=== PATIENT | male | born 1940 | race Caucasian/White ===

== ENCOUNTER 2017-07-03 22:44 | Inpatient (IN) | payer MEDICARE ==
[~2017-07-03] VITALS: Ht 170.2 cm; Wt 77.3 kg
[~2017-07-03 22:44] MED LIST: AMLO2.5T PO; APIX5TAB3 PO; ASPI-611 PO; ATOR20TA PO; CLOP75TA35 PO; GEMF600T3 PO; HYDR25TA4 PO; INDO50CA PO; LISI40TA4 PO; OMEG-42 PO; OMEP20TA23 PO; POTA20TA10 PO; SOTA80TA PO; TRAZ-146 PO
[2017-07-03 23:11] LABS: BASOPHILS % (AUTO) 0.2 % (0-1); EOSINOPHILS # (AUTO) 0.1 X10'3 (0-0.9); HEMATOCRIT 38.8 % (42.0-52.0); HEMOGLOBIN 13.7 g/dl (14.0-17.9); LYMPHOCYTES # (AUTO) 1.2 X10'3 (1.1-4.8); LYMPHOCYTES % (AUTO) 26.5 % (21-51); MEAN CORPUSCULAR HEMOGLOBIN 31.3 PG (27.0-31.0); MEAN CORPUSCULAR HGB CONC 35.3 % (33.0-36.5); MEAN CORPUSCULAR VOLUME 88.7 FL (78-98); MEAN PLATELET VOLUME 7.5 FL (7.4-10.4); MONOCYTES # (AUTO) 0.5 X10'3 (0-0.9); MONOCYTES % (AUTO) 11.4 % (2-12); NEUTROPHILS # (AUTO) 2.7 X10'3 (1.8-7.7); NEUTROPHILS % (AUTO) 58.9 % (42-75); PLATELET COUNT 166 X10'3 (140-440); RED BLOOD COUNT 4.38 X10'6 (4.70-6.10); RED CELL DISTRIBUTION WIDTH 14.4 % (11.5-14.5); WHITE BLOOD COUNT 4.5 X10'3 (4.5-11.0)
[2017-07-03 23:21] LABS: INR 1.1 INR; PARTIAL THROMBOPLASTIN TIME 29 SECONDS (22-32); PROTHROMBIN TIME 11.6 SECONDS (9.0-12.0)
[2017-07-03] MEDS ORDERED: nitroGLYCERIN 0.4mg/hour patch TD ONE (23:25)
[2017-07-03 23:32] LABS: ALANINE AMINOTRANSFERASE 16 U/L (12-78); ALBUMIN/GLOBULIN RATIO 1.2 (1.1-1.5); ALKALINE PHOSPHATASE 89 IU/L (46-116); ANION GAP 8 (8-16); ASPARTATE AMINO TRANSFERASE 16 U/L (10-37); BILIRUBIN,TOTAL 0.7 MG/DL (0.1-1.0); BLOOD UREA NITROGEN 20 MG/DL (7-18); BUN/CREATININE RATIO 17.2 (5.4-32.0); CALCIUM 9.4 MG/DL (8.5-10.1); CHLORIDE 106 MMOL/L (99-107); CREATININE 1.16 MG/DL (0.60-1.10); GLUCOSE 118 MG/DL (70-104); POTASSIUM 3.4 MMOL/L (3.5-5.1); SODIUM 145 MMOL/L (135-145); TOTAL CARBON DIOXIDE 30.8 MMOL/L (24-32); TOTAL PROTEIN 7.4 G/DL (6.4-8.2); eGFR 61 ML/MIN
[2017-07-04] MEDS ORDERED: CARV-50 PO (01:41)
[2017-07-04] MEDS ORDERED: APIX5TAB3 PO (01:41)
[2017-07-04] MEDS ORDERED: LISI40TA4 PO (01:41)
[2017-07-04] MEDS ORDERED: CHOL100046 PO (01:42)
[2017-07-04] MEDS ORDERED: mag hydrox/Alum hydrox/simeth 30ml oral suspension PO PRN (01:45)
[2017-07-04] MEDS ORDERED: acetaminophen 325mg tablet PO PRN (01:45)
[2017-07-04] MEDS ORDERED: ondansetron/PF 4mg/2ml inj IV PRN (01:45)
[2017-07-04] MEDS ORDERED: magnesium hydroxide 30ml (MOM) UD suspension PO PRN (01:45)
[2017-07-04] MEDS ORDERED: potassium Cl 20 mEq SR tablet PO PRN (07:00)
[2017-07-04] MEDS ORDERED: magnesium Cl slow-release 64mg tablet PO PRN (07:00)
[2017-07-04] MEDS ORDERED: potassium Cl 40MEQ/NS 500ml 500 ML IV PRN ×2 (07:00)
[2017-07-04] MEDS ORDERED: gemfibrozil 600mg tablet PO SCH (07:30)
[2017-07-04] MEDS ORDERED: atorvastatin 20mg tablet PO SCH (08:00)
[2017-07-04] MEDS: lisinopril 20mg tablet PO SCH ×2 (08:11→21:00)
[2017-07-04] MEDS: vitamin D (cholecalciferol) 1,000 unit tablet PO SCH (08:11)
[2017-07-04] MEDS: carVEDilol 12.5mg tablet PO SCH ×2 (08:12→21:00)
[2017-07-04] MEDS: pantoprazole 40mg Tablet.DR PO SCH (08:12)
[2017-07-04] MEDS: amLODIPine 5mg tablet PO SCH (08:13)
[2017-07-04] MEDS: aspirin 81mg tab.chew PO SCH (08:13)
[2017-07-04] MEDS: potassium Cl 20 mEq SR tablet PO SCH ×3 (08:13→21:01)
[2017-07-04 09:22] VITALS: BP 126/56
[2017-07-04] MEDS ORDERED: metoprolol tartrate 1mg/ml inj IV PRN (09:55)
[2017-07-04] MEDS ORDERED: regadenoson 0.4mg/5ml syringe IV ONE (09:55)
[2017-07-04] MEDS ORDERED: nitroGLYCERIN 0.4mg SUBLingual tab SL PRN (09:55)
[2017-07-04] MEDS ORDERED: aminophylline 250mg/10ml inj. IV PRN (09:55)
[2017-07-04] MEDS: apixaban 5mg tablet PO SCH ×2 (10:05→21:00)
[2017-07-04 11:00] VITALS: BP 104/62
[2017-07-04] MEDS: potassium Cl 20 mEq SR tablet PO PRN (13:01)
[2017-07-04] MEDS: gemfibrozil 600mg tablet PO SCH (17:27)
[2017-07-04 19:00] VITALS: BP 122/62
[2017-07-04] MEDS: traZODone 50mg tablet PO SCH (21:01)
[2017-07-04] MEDS: atorvastatin 20mg tablet PO SCH (21:01)
[2017-07-04 23:00] VITALS: BP 131/72
[2017-07-05] VITALS (22 sets, daily range): BP systolic 92–165; BP diastolic 38–82
[2017-07-05 06:38] LABS: BASOPHILS % (AUTO) 0.1 % (0-1); EOSINOPHILS # (AUTO) 0.1 X10'3 (0-0.9); EOSINOPHILS % (AUTO) 2.5 % (0-6); HEMATOCRIT 35.8 % (42.0-52.0); HEMOGLOBIN 12.5 g/dl (14.0-17.9); LYMPHOCYTES # (AUTO) 1.2 X10'3 (1.1-4.8); MEAN CORPUSCULAR HEMOGLOBIN 31.2 PG (27.0-31.0); MEAN CORPUSCULAR VOLUME 89.1 FL (78-98); MEAN PLATELET VOLUME 7.9 FL (7.4-10.4); MONOCYTES # (AUTO) 0.5 X10'3 (0-0.9); MONOCYTES % (AUTO) 10.9 % (2-12); NEUTROPHILS % (AUTO) 61.5 % (42-75); PLATELET COUNT 154 X10'3 (140-440); RED BLOOD COUNT 4.02 X10'6 (4.70-6.10); RED CELL DISTRIBUTION WIDTH 14.2 % (11.5-14.5); WHITE BLOOD COUNT 4.8 X10'3 (4.5-11.0)
[2017-07-05 07:01] LABS: ALANINE AMINOTRANSFERASE 21 U/L (12-78); ALBUMIN 3.3 G/DL (3.4-5.0); ALBUMIN/GLOBULIN RATIO 1.1 (1.1-1.5); ALKALINE PHOSPHATASE 76 IU/L (46-116); ANION GAP 9 (8-16); ASPARTATE AMINO TRANSFERASE 13 U/L (10-37); BILIRUBIN,TOTAL 0.5 MG/DL (0.1-1.0); BLOOD UREA NITROGEN 23 MG/DL (7-18); BUN/CREATININE RATIO 21.5 (5.4-32.0); CHLORIDE 109 MMOL/L (99-107); CREATININE 1.07 MG/DL (0.60-1.10); GLUCOSE 115 MG/DL (70-104); MAGNESIUM 2.2 MG/DL (1.5-2.4); POTASSIUM 3.4 MMOL/L (3.5-5.1); SODIUM 146 MMOL/L (135-145); TOTAL PROTEIN 6.4 G/DL (6.4-8.2); eGFR 67 ML/MIN
[2017-07-05] MEDS: vitamin D (cholecalciferol) 1,000 unit tablet PO SCH (07:35)
[2017-07-05] MEDS: potassium Cl 20 mEq SR tablet PO SCH ×3 (07:35→20:15)
[2017-07-05] MEDS: aspirin 81mg tab.chew PO SCH (07:35)
[2017-07-05] MEDS: pantoprazole 40mg Tablet.DR PO SCH (07:35)
[2017-07-05] MEDS: potassium Cl 20 mEq SR tablet PO PRN ×2 (07:35→12:56)
[2017-07-05] MEDS: carVEDilol 12.5mg tablet PO SCH ×2 (07:36→20:16)
[2017-07-05] MEDS: gemfibrozil 600mg tablet PO SCH ×2 (07:37→20:15)
[2017-07-05] MEDS: amLODIPine 5mg tablet PO SCH (07:37)
[2017-07-05] MEDS: HYDROchlorothiazide 12.5mg capsule PO SCH (07:37)
[2017-07-05] MEDS: lisinopril 20mg tablet PO SCH ×2 (07:37→20:14)
[2017-07-05] MEDS: apixaban 5mg tablet PO SCH (07:37)
[2017-07-05] MEDS ORDERED: regadenoson 0.4mg/5ml syringe IV ONE (09:00)
[2017-07-05] MEDS ORDERED: aminophylline inj. 0 ML IV ONE (09:00)
[2017-07-05] MEDS ORDERED: normal saline 1000ml 1,000 ML IV SCH ×2 (13:20→16:30)
[2017-07-05] MEDS ORDERED: nitroGLYCERIN-Tridil 50MG/D5W 250 ML IV ONE (14:44)
[2017-07-05] MEDS ORDERED: fentaNYL/PF 50MCG/1 ML 2ML syringe ONE (14:44)
[2017-07-05] MEDS ORDERED: LIDOcaine 1% 30ml vial 30 ML ONE (14:45)
[2017-07-05] MEDS ORDERED: iohexol 350 MG/ML 50ML vial IV ONE (14:45)
[2017-07-05] MEDS ORDERED: midazolam 2 mg/2 ml injection ONE (14:45)
[2017-07-05] MEDS ORDERED: iohexol 350MG/ML 100ml bottle IV ONE (14:45)
[2017-07-05] MEDS ORDERED: heparin 1,000unit/ml 10ml vial 10 ML ONE (14:45)
[2017-07-05] MEDS ORDERED: ISOS30TA6 PO (16:58)
[2017-07-05] MEDS: atorvastatin 20mg tablet PO SCH (20:14)
[2017-07-05] MEDS: traZODone 50mg tablet PO SCH (20:14)
[2017-07-06 03:00] VITALS: BP 105/70
[2017-07-06 06:00] VITALS: BP 128/74
[2017-07-06 06:17] LABS: BASOPHILS % (AUTO) 0.1 % (0-1); EOSINOPHILS # (AUTO) 0.2 X10'3 (0-0.9); EOSINOPHILS % (AUTO) 2.3 % (0-6); HEMATOCRIT 35.6 % (42.0-52.0); HEMOGLOBIN 12.3 g/dl (14.0-17.9); LYMPHOCYTES # (AUTO) 1.1 X10'3 (1.1-4.8); LYMPHOCYTES % (AUTO) 16.5 % (21-51); MEAN CORPUSCULAR HEMOGLOBIN 30.9 PG (27.0-31.0); MEAN CORPUSCULAR HGB CONC 34.6 % (33.0-36.5); MEAN CORPUSCULAR VOLUME 89.3 FL (78-98); MONOCYTES # (AUTO) 0.6 X10'3 (0-0.9); MONOCYTES % (AUTO) 8.7 % (2-12); NEUTROPHILS # (AUTO) 4.8 X10'3 (1.8-7.7); NEUTROPHILS % (AUTO) 72.4 % (42-75); PLATELET COUNT 153 X10'3 (140-440); RED BLOOD COUNT 3.99 X10'6 (4.70-6.10); RED CELL DISTRIBUTION WIDTH 15.2 % (11.5-14.5); WHITE BLOOD COUNT 6.6 X10'3 (4.5-11.0)
[2017-07-06 06:37] LABS: ALANINE AMINOTRANSFERASE 14 U/L (12-78); ALBUMIN 3.2 G/DL (3.4-5.0); ALKALINE PHOSPHATASE 76 IU/L (46-116); ANION GAP 8 (8-16); ASPARTATE AMINO TRANSFERASE 11 U/L (10-37); BILIRUBIN,TOTAL 0.5 MG/DL (0.1-1.0); BLOOD UREA NITROGEN 17 MG/DL (7-18); BUN/CREATININE RATIO 16.2 (5.4-32.0); CHLORIDE 111 MMOL/L (99-107); CHOLESTEROL 83 MG/DL (0-200); CREATININE 1.05 MG/DL (0.60-1.10); GLUCOSE 106 MG/DL (70-104); HDL CHOLESTEROL 28 MG/DL (35-60); LDL CHOLESTEROL 46 MG/DL (50-100); MAGNESIUM 1.9 MG/DL (1.5-2.4); POTASSIUM 3.6 MMOL/L (3.5-5.1); SODIUM 146 MMOL/L (135-145); TOTAL CARBON DIOXIDE 27.5 MMOL/L (24-32); TOTAL PROTEIN 6.5 G/DL (6.4-8.2); TRIGLYCERIDES 44 MG/DL (20-135); eGFR 68 ML/MIN
[2017-07-06] MEDS: vitamin D (cholecalciferol) 1,000 unit tablet PO SCH (08:19)
[2017-07-06] MEDS: gemfibrozil 600mg tablet PO SCH (08:19)
[2017-07-06] MEDS: aspirin 81mg tab.chew PO SCH (08:20)
[2017-07-06] MEDS: potassium Cl 20 mEq SR tablet PO SCH ×2 (08:20→13:00)
[2017-07-06] MEDS: carVEDilol 12.5mg tablet PO SCH (08:20)
[2017-07-06] MEDS: amLODIPine 5mg tablet PO SCH (08:20)
[2017-07-06] MEDS: lisinopril 20mg tablet PO SCH (08:20)
[2017-07-06] MEDS: pantoprazole 40mg Tablet.DR PO SCH (08:20)
[2017-07-06] MEDS: HYDROchlorothiazide 12.5mg capsule PO SCH (08:20)
[2017-07-06 11:00] VITALS: BP 125/69
== END 2017-07-06 13:00 | disposition home or self-care (01) | DRG 287 ==
LOC: ER 22:45 → ED HOLD 07-04 01:42 → EDBEDREQ 07-04 06:27 → PCU 3S 07-04 09:28
PROVIDERS: ADMIT Internal Medicine; ATTEND Internal Medicine
PROC: 4A023N8 Measurement of Cardiac Sampling and Pressure, Bilateral, Percutaneous Approach (ICD-10-PCS; principal; 2017-07-05)
PROC: B2111ZZ Fluoroscopy of Multiple Coronary Arteries using Low Osmolar Contrast (ICD-10-PCS; 2017-07-05)
PROC: 3E073KZ Introduction of Other Diagnostic Substance into Coronary Artery, Percutaneous Approach (ICD-10-PCS; 2017-07-05)
PROC: 4A02XM4 Measurement of Cardiac Total Activity, External Approach (ICD-10-PCS; 2017-07-05)
PROC: B2151ZZ Fluoroscopy of Left Heart using Low Osmolar Contrast (ICD-10-PCS; 2017-07-05)
DX: I25.110 Atherosclerotic heart disease of native coronary artery with unstable angina pectoris (principal); I48.0 Paroxysmal atrial fibrillation; E78.5 Hyperlipidemia, unspecified; M10.9 Gout, unspecified; I10 Essential (primary) hypertension; E87.6 Hypokalemia; M19.90 Unspecified osteoarthritis, unspecified site; G47.33 Obstructive sleep apnea (adult) (pediatric); E66.9 Obesity, unspecified; I25.2 Old myocardial infarction; Z79.01 Long term (current) use of anticoagulants; Z79.82 Long term (current) use of aspirin; Z79.899 Other long term (current) drug therapy; Z95.0 Presence of cardiac pacemaker; Z95.5 Presence of coronary angioplasty implant and graft; Z87.442 Personal history of urinary calculi; Z82.49 Family history of ischemic heart disease and other diseases of the circulatory system; Z80.42 Family history of malignant neoplasm of prostate; Z80.0 Family history of malignant neoplasm of digestive organs; Z80.8 Family history of malignant neoplasm of other organs or systems; Z68.26 Body mass index [BMI] 26.0-26.9, adult
CPT/HCPCS: 36415; 71045; 78451; 80053; 80061; 80162; 83735; 83880; 84484; 85025; 85610; 85730; 87070; 93005; 93017; 93460; 99152; 99153; 99285; A4620; A6257; A6258; A9500; C1760; C1769; C1894; J0280; J1644; J2250; J3010; J3490; J7030; Q9967

== ENCOUNTER 2020-01-13 20:55 | Observation (INO) | payer MEDICARE ==
[~2020-01-13] VITALS: Ht 170.2 cm; Wt 70.0 kg
[~2020-01-13 20:55] MED LIST changes: -AMLO2.5T PO; +AMLO2.5T4 PO; +CARV-50 PO; +CHOL100046 PO; -CLOP75TA35 PO; -GEMF600T3 PO; +GEMF600T89 PO; -INDO50CA PO; -SOTA80TA PO; -TRAZ-146 PO; +TRAZ-256 PO
[2020-01-13] MEDS ORDERED: aspirin 81mg tab.chew PO ONE ×2 (21:05→22:20)
[2020-01-13] MEDS: nitroGLYCERIN 0.4mg SUBLingual tab SL PRN ×2 (21:26→21:49)
--- NOTE | 2020-01-13 21:38 | NUR ---
Pt given SL Nitro x 1. Chest pressure/tightness improved from 5/10 to 3/10.
[2020-01-13 21:41] LABS: BASOPHILS % (AUTO) 0.5 % (0-1); EOSINOPHILS # (AUTO) 0.1 X10'3 (0-0.9); EOSINOPHILS % (AUTO) 2.8 % (0-6); HEMATOCRIT 36.9 % (42.0-52.0); HEMOGLOBIN 12.5 g/dl (14.0-17.9); LYMPHOCYTES # (AUTO) 0.7 X10'3 (1.1-4.8); LYMPHOCYTES % (AUTO) 14.1 % (21-51); MEAN CORPUSCULAR HEMOGLOBIN 30.8 PG (27.0-31.0); MEAN CORPUSCULAR HGB CONC 33.8 g/dL (33.0-36.5); MEAN CORPUSCULAR VOLUME 91.1 FL (78-98); MEAN PLATELET VOLUME 7.4 FL (7.4-10.4); MONOCYTES # (AUTO) 0.6 X10'3 (0-0.9); MONOCYTES % (AUTO) 13.6 % (2-12); NEUTROPHILS # (AUTO) 3.2 X10'3 (1.8-7.7); PLATELET COUNT 138 X10'3 (140-440); RED BLOOD COUNT 4.05 X10'6 (4.70-6.10); RED CELL DISTRIBUTION WIDTH 13.9 % (11.5-14.5); WHITE BLOOD COUNT 4.7 X10'3 (4.5-11.0)
--- NOTE | 2020-01-13 21:50 | NUR ---
Pt given 2nd dose SL Nitro for c/o continued chest pressure/tightness, especially on inspiration.
[2020-01-13] MEDS ORDERED: ondansetron/PF 4mg/2ml inj IV ONE (22:00)
[2020-01-13 22:01] LABS: ALANINE AMINOTRANSFERASE 17 U/L (12-78); ALBUMIN 3.8 G/DL (3.4-5.0); ALBUMIN/GLOBULIN RATIO 1.3 (1.1-1.5); ALKALINE PHOSPHATASE 58 IU/L (46-116); ANION GAP 7 (8-16); ASPARTATE AMINO TRANSFERASE 17 U/L (10-37); BILIRUBIN,TOTAL 0.7 MG/DL (0.1-1.0); BLOOD UREA NITROGEN 20 MG/DL (7-18); BUN/CREATININE RATIO 21.5 (5.4-32.0); CALCIUM 8.7 MG/DL (8.5-10.1); CHLORIDE 104 MMOL/L (99-107); CREATININE 0.93 MG/DL (0.60-1.10); GLUCOSE 127 MG/DL (70-104); POTASSIUM 3.5 MMOL/L (3.5-5.1); SODIUM 140 MMOL/L (135-145); TOTAL CARBON DIOXIDE 28.7 MMOL/L (24-32); TOTAL PROTEIN 6.8 G/DL (6.4-8.2); eGFR 78 ML/MIN
[2020-01-13] MEDS ORDERED: ondansetron/PF 4mg/2ml inj IV PRN (22:20)
[2020-01-13] MEDS ORDERED: magnesium 4gm in 100ml NS 100 ML IV PRN (22:20)
[2020-01-13] MEDS ORDERED: magnesium 2GM in 50ml NS 50 ML IV PRN (22:20)
[2020-01-13] MEDS ORDERED: aminophylline 250mg/10ml inj. IV PRN (22:20)
[2020-01-13] MEDS ORDERED: metoprolol tartrate 1mg/ml inj IV PRN (22:20)
[2020-01-13] MEDS ORDERED: potassium CL 10mEq/100ml bag 100 ML IV PRN ×2 (22:20)
[2020-01-13] MEDS ORDERED: magnesium Cl slow-release 64mg tablet PO PRN (22:20)
[2020-01-13] MEDS ORDERED: regadenoson 0.4mg/5ml syringe IV ONE (22:20)
[2020-01-13] MEDS ORDERED: potassium Cl 20 mEq SR tablet PO PRN ×2 (22:20)
[2020-01-13] MEDS ORDERED: mag hydrox/Alum hydrox/simeth 30ml oral suspension PO PRN (22:20)
[2020-01-13] MEDS ORDERED: magnesium hydroxide 30ml (MOM) UD suspension PO PRN (22:20)
[2020-01-13] MEDS ORDERED: morphine 2 MG/ML inj. syringe IV PRN (22:20)
[2020-01-13] MEDS ORDERED: nitroGLYCERIN 0.4mg SUBLingual tab SL PRN ×2 (22:20)
[2020-01-13] MEDS ORDERED: acetaminophen 325mg tablet PO PRN (22:20)
[2020-01-13] MEDS ORDERED: ATOR40TA71 PO (22:23)
[2020-01-13] MEDS ORDERED: regadenoson 0.4mg/5ml syringe IV PRN (22:30)
--- NOTE | 2020-01-13 23:08 | NUR ---
called report rn will call back
--- NOTE | 2020-01-13 23:17 | NUR ---
Patient in room ED 13. I have received report from ROSELIA Damon and had the opportunity to ask questions and assume patient care.
[2020-01-13 23:27] VITALS: BP 139/77
--- NOTE | 2020-01-13 23:38 | NUR ---
Patient arrived on unit via wheelchair with RN. Vital signs taken, mrsa swab complete, 2 rn skin check performed, DART complete. Will continue to monitor. He is in stable condition without CP.
[2020-01-14] VITALS (10 sets, daily range): BP systolic 105–148; BP diastolic 47–80
[2020-01-14 03:10] LABS: BASOPHILS % (AUTO) 0.3 % (0-1); EOSINOPHILS # (AUTO) 0.1 X10'3 (0-0.9); HEMATOCRIT 39.9 % (42.0-52.0); HEMOGLOBIN 13.5 g/dl (14.0-17.9); LYMPHOCYTES # (AUTO) 0.8 X10'3 (1.1-4.8); LYMPHOCYTES % (AUTO) 15.6 % (21-51); MEAN CORPUSCULAR HGB CONC 33.9 g/dL (33.0-36.5); MEAN CORPUSCULAR VOLUME 91.3 FL (78-98); MEAN PLATELET VOLUME 7.5 FL (7.4-10.4); MONOCYTES # (AUTO) 0.5 X10'3 (0-0.9); NEUTROPHILS # (AUTO) 3.5 X10'3 (1.8-7.7); NEUTROPHILS % (AUTO) 71.1 % (42-75); PLATELET COUNT 142 X10'3 (140-440); RED BLOOD COUNT 4.37 X10'6 (4.70-6.10)
[2020-01-14 03:24] LABS: ALANINE AMINOTRANSFERASE 19 U/L (12-78); ALBUMIN 3.9 G/DL (3.4-5.0); ALBUMIN/GLOBULIN RATIO 1.2 (1.1-1.5); ALKALINE PHOSPHATASE 64 IU/L (46-116); ANION GAP 5 (8-16); ASPARTATE AMINO TRANSFERASE 18 U/L (10-37); BILIRUBIN,TOTAL 0.6 MG/DL (0.1-1.0); BLOOD UREA NITROGEN 19 MG/DL (7-18); BUN/CREATININE RATIO 22.4 (5.4-32.0); CALCIUM 9.2 MG/DL (8.5-10.1); CHLORIDE 108 MMOL/L (99-107); CREATININE 0.85 MG/DL (0.60-1.10); GLUCOSE 119 MG/DL (70-104); POTASSIUM 3.7 MMOL/L (3.5-5.1); SODIUM 142 MMOL/L (135-145); TOTAL CARBON DIOXIDE 29.1 MMOL/L (24-32); TOTAL PROTEIN 7.2 G/DL (6.4-8.2); eGFR 87 ML/MIN
[2020-01-14 03:27] LABS: MAGNESIUM 2.2 MG/DL (1.5-2.4)
--- NOTE | 2020-01-14 06:04 | NUR ---
Patient in room PCU 3023. I have received report from ROSELIA Mccall and had the opportunity to ask questions and assume patient care.
--- NOTE | 2020-01-14 06:09 | NUR ---
Problems reprioritized. Patient report given, questions answered & plan of care reviewed with ROSELIA Espinosa.
[2020-01-14] MEDS ORDERED: apixaban 5mg tablet PO SCH (08:00)
[2020-01-14] MEDS ORDERED: aspirin 81mg tablet.DR PO SCH (08:00)
[2020-01-14] MEDS ORDERED: amLODIPine 5mg tablet PO SCH (08:00)
[2020-01-14] MEDS ORDERED: HYDROchlorothiazide 12.5mg capsule PO SCH (08:00)
[2020-01-14] MEDS ORDERED: carVEDilol 12.5mg tablet PO SCH (08:00)
[2020-01-14] MEDS ORDERED: K and/or MAG REPLACEMENT MC SCH (08:00)
[2020-01-14] MEDS ORDERED: lisinopril 5mg tablet PO SCH (08:00)
[2020-01-14] MEDS ORDERED: aspirin 81mg tab.chew PO SCH (08:00)
--- NOTE | 2020-01-14 15:59 | NUR ---
Pt stable for discharge per MD orders. Provided discharge education and instructions. Answered any questions/concerns pt may have. No new medications needed to be sent to pharmacy. Tele monitor removed. PIV removed, cannula intact. Belongings sent with pt. Pt walked down to lobby where pt was picked up in private vehicle by .
== END 2020-01-14 15:54 | disposition home or self-care (01) ==
LOC: ER 20:56 → ED HOLD 22:18 → PCU 3S 23:20
PROVIDERS: ADMIT Family Medicine; ATTEND Family Medicine
DX: R07.89 Other chest pain (principal); I48.20 Chronic atrial fibrillation, unspecified; I25.10 Atherosclerotic heart disease of native coronary artery without angina pectoris; I10 Essential (primary) hypertension; E78.5 Hyperlipidemia, unspecified; I25.2 Old myocardial infarction; M10.9 Gout, unspecified; I24.9 Acute ischemic heart disease, unspecified; Z95.5 Presence of coronary angioplasty implant and graft; Z95.0 Presence of cardiac pacemaker; Z79.01 Long term (current) use of anticoagulants; Z79.82 Long term (current) use of aspirin; Z79.899 Other long term (current) drug therapy
CPT/HCPCS: 36415; 71045; 78452; 80053; 83735; 83880; 84484; 85025; 87081; 93005; 93017; 93306; 96374; 99285; A9500; G0378; J2405; J2785

== ENCOUNTER 2020-02-23 06:20 | Day surgery (SDC) | payer MEDICARE ==
[2020-02-22 11:18] LABS: BASOPHILS % (AUTO) 0.3 % (0-1); EOSINOPHILS # (AUTO) 0.1 X10'3 (0-0.9); EOSINOPHILS % (AUTO) 1.4 % (0-6); HEMATOCRIT 42.4 % (42.0-52.0); HEMOGLOBIN 14.3 g/dl (14.0-17.9); LYMPHOCYTES # (AUTO) 0.9 X10'3 (1.1-4.8); LYMPHOCYTES % (AUTO) 20.6 % (21-51); MEAN CORPUSCULAR HEMOGLOBIN 30.9 PG (27.0-31.0); MEAN CORPUSCULAR HGB CONC 33.6 g/dL (33.0-36.5); MEAN CORPUSCULAR VOLUME 91.9 FL (78-98); MEAN PLATELET VOLUME 7.3 FL (7.4-10.4); MONOCYTES # (AUTO) 0.5 X10'3 (0-0.9); MONOCYTES % (AUTO) 11.7 % (2-12); NEUTROPHILS # (AUTO) 2.8 X10'3 (1.8-7.7); PLATELET COUNT 158 X10'3 (140-440); RED BLOOD COUNT 4.62 X10'6 (4.70-6.10); RED CELL DISTRIBUTION WIDTH 13.8 % (11.5-14.5); WHITE BLOOD COUNT 4.2 X10'3 (4.5-11.0)
[2020-02-22 11:28] LABS: ALBUMIN 4.1 G/DL (3.4-5.0); ANION GAP 3 (8-16); BLOOD UREA NITROGEN 17 MG/DL (7-18); BUN/CREATININE RATIO 16.7 (5.4-32.0); CALCIUM 9.3 MG/DL (8.5-10.1); CHLORIDE 108 MMOL/L (99-107); CREATININE 1.02 MG/DL (0.60-1.10); GLUCOSE 98 MG/DL (70-104); POTASSIUM 3.9 MMOL/L (3.5-5.1); SODIUM 143 MMOL/L (135-145); TOTAL CARBON DIOXIDE 31.7 MMOL/L (24-32); eGFR 70 ML/MIN
[2020-02-22 11:29] LABS: PARTIAL THROMBOPLASTIN TIME 29 SECONDS (22-32)
[2020-02-23] VITALS (10 sets, daily range): BP systolic 124–146; BP diastolic 68–85
[~2020-02-23] VITALS: Ht 170.2 cm; Wt 79.2 kg
[~2020-02-23 06:20] MED LIST changes: -ATOR20TA PO; +ATOR40TA71 PO; -OMEP20TA23 PO
[2020-02-23] MEDS ORDERED: normal saline 1,000 ML IV SCH (06:50)
[2020-02-23] MEDS ORDERED: LORazepam 0.5 MG tablet PO PRN (06:50)
[2020-02-23] MEDS ORDERED: diphenhydrAMINE 25mg capsule PO PRN (06:50)
[2020-02-23] MEDS ORDERED: LIDOcaine/PRILOcaine 5gm cream TP ONE (06:55)
[2020-02-23] MEDS ORDERED: nitroGLYCERIN-Tridil 50MG/D5W 250 ML IV ONE (07:40)
[2020-02-23] MEDS ORDERED: verapamil 2.5 mg/ml inj IV ONE (07:41)
[2020-02-23] MEDS ORDERED: heparin 1,000unit/ml 10ml vial 10 ML ONE (07:41)
[2020-02-23] MEDS ORDERED: iohexol 350MG/ML 100ml bottle IV ONE (07:41)
[2020-02-23] MEDS ORDERED: LIDOcaine 1% (10mg/ml)w/preservative injection 20ml MDV ONE (07:41)
[2020-02-23] MEDS ORDERED: fentaNYL/PF 50MCG/1 ML 2ML syringe ONE (07:41)
[2020-02-23] MEDS ORDERED: iohexol 350 MG/ML 50ML vial IV ONE (07:41)
[2020-02-23] MEDS ORDERED: midazolam 2 mg/2 ml injection ONE (07:41)
[2020-02-23] MEDS ORDERED: normal saline 1000ml 1,000 ML IV SCH (12:50)
--- NOTE | 2020-02-23 13:02 | NUR ---
Pt had IV fluids infusing as per written order upon admit, then new IV fluid order entered and administration was continued at increased rate. Pt has tolerated this well, vs stable as charted. Pt denies cp, sob. IV site stable.
== END 2020-02-23 14:00 | disposition home or self-care (01) ==
LOC: SSTAY O 06:20
PROVIDERS: ATTEND Internal Medicine Cardiovascular Disease
DX: R94.39 Abnormal result of other cardiovascular function study (principal); R53.83 Other fatigue; I25.10 Atherosclerotic heart disease of native coronary artery without angina pectoris; I10 Essential (primary) hypertension; E78.5 Hyperlipidemia, unspecified; I49.5 Sick sinus syndrome; I48.0 Paroxysmal atrial fibrillation; G47.33 Obstructive sleep apnea (adult) (pediatric); E66.9 Obesity, unspecified; Z68.27 Body mass index [BMI] 27.0-27.9, adult; Z95.5 Presence of coronary angioplasty implant and graft; Z95.0 Presence of cardiac pacemaker; Z79.899 Other long term (current) drug therapy; Z79.82 Long term (current) use of aspirin; Z79.01 Long term (current) use of anticoagulants; Z85.828 Personal history of other malignant neoplasm of skin; Z87.442 Personal history of urinary calculi; Z80.0 Family history of malignant neoplasm of digestive organs; Z80.8 Family history of malignant neoplasm of other organs or systems; Z81.8 Family history of other mental and behavioral disorders
CPT/HCPCS: 36415; 80048; 85025; 85610; 85730; 93005; 93458; 99152; 99153; C1769; C1894; J1644; J2001; J2250; J3010; J7030; Q0163; Q9967; A4620; A5120; A6258; J3490

== ENCOUNTER 2021-02-09 05:47 | Day surgery (SDC) | payer MEDICARE ==
[2021-02-08 12:20] LABS: BASOPHILS % (AUTO) 0.4 % (0-1); EOSINOPHILS # (AUTO) 0.1 X10'3 (0-0.9); EOSINOPHILS % (AUTO) 1.3 % (0-6); HEMATOCRIT 41.4 % (42.0-52.0); HEMOGLOBIN 13.8 g/dl (14.0-17.9); LYMPHOCYTES # (AUTO) 0.7 X10'3 (1.1-4.8); LYMPHOCYTES % (AUTO) 14.7 % (21-51); MEAN CORPUSCULAR HEMOGLOBIN 29.9 PG (27.0-31.0); MEAN CORPUSCULAR HGB CONC 33.4 g/dL (33.0-36.5); MEAN CORPUSCULAR VOLUME 89.4 FL (78-98); MEAN PLATELET VOLUME 8.2 FL (7.4-10.4); MONOCYTES # (AUTO) 0.6 X10'3 (0-0.9); MONOCYTES % (AUTO) 12.3 % (2-12); NEUTROPHILS # (AUTO) 3.3 X10'3 (1.8-7.7); NEUTROPHILS % (AUTO) 71.3 % (42-75); PLATELET COUNT 157 X10'3 (140-440); RED BLOOD COUNT 4.63 X10'6 (4.70-6.10); RED CELL DISTRIBUTION WIDTH 16.7 % (11.5-14.5); WHITE BLOOD COUNT 4.7 X10'3 (4.5-11.0)
[2021-02-08 12:26] LABS: PARTIAL THROMBOPLASTIN TIME 31 SECONDS (22-32)
[2021-02-08 12:32] LABS: ALBUMIN 3.8 G/DL (3.4-5.0); ANION GAP 7 (8-16); BLOOD UREA NITROGEN 21 MG/DL (7-18); BUN/CREATININE RATIO 15.4 (5.4-32.0); CALCIUM 9.4 MG/DL (8.5-10.1); CHLORIDE 111 MMOL/L (99-107); CREATININE 1.36 MG/DL (0.60-1.10); GLUCOSE 94 MG/DL (70-104); POTASSIUM 4.1 MMOL/L (3.5-5.1); SODIUM 148 MMOL/L (135-145); TOTAL CARBON DIOXIDE 29.6 MMOL/L (24-32); eGFR 50 ML/MIN
[~2021-02-09] VITALS: Ht 170.2 cm; Wt 81.6 kg
[2021-02-09] VITALS (9 sets, daily range): BP systolic 104–130; BP diastolic 51–72
[~2021-02-09 05:47] MED LIST changes: +LISI40TA13 PO; -LISI40TA4 PO; +POTA-197 PO; -POTA20TA10 PO
[2021-02-09] MEDS ORDERED: normal saline 1000ml 1,000 ML IV SCH (06:15)
[2021-02-09] MEDS ORDERED: cefazolin/dext.iso 2gm/100ml 100 ML IV ONE (06:15)
[2021-02-09] MEDS ORDERED: HYDR12.55 PO (06:57)
[2021-02-09] MEDS ORDERED: AMLO10TA PO (06:57)
[2021-02-09] MEDS ORDERED: ATOR20TA66 PO (06:57)
[2021-02-09] MEDS ORDERED: LIDOCAINE 1%/EPI 1:100,000 inj. 10 ML multi-dose vial ONE (07:42)
[2021-02-09] MEDS ORDERED: fentaNYL/PF 50MCG/1 ML 2ML syringe ONE (07:42)
[2021-02-09] MEDS ORDERED: midazolam 1 mg/ML 2ml injection ONE (07:42)
[2021-02-09] MEDS ORDERED: ceFAZolin 1000mg inj ONE (07:42)
[2021-02-09] MEDS ORDERED: HYDROcodone/acetaminophen 10/325mg tab PO PRN (09:50)
[2021-02-09] MEDS ORDERED: HYDROcodone/acetaminophen 5mg/325mg tablet PO PRN (09:50)
[2021-02-09] MEDS ORDERED: vancomycin/NS 1 GM ADD-VANTAGE 250 ML IV ONE (10:00)
== END 2021-02-09 12:00 | disposition home or self-care (01) ==
LOC: SSTAY O 05:47
PROVIDERS: ATTEND Internal Medicine Cardiovascular Disease
DX: Z45.010 Encounter for checking and testing of cardiac pacemaker pulse generator [battery] (principal); I25.10 Atherosclerotic heart disease of native coronary artery without angina pectoris; I48.91 Unspecified atrial fibrillation; I10 Essential (primary) hypertension; E78.5 Hyperlipidemia, unspecified; Z95.5 Presence of coronary angioplasty implant and graft; Z79.82 Long term (current) use of aspirin; Z79.899 Other long term (current) drug therapy; Z79.01 Long term (current) use of anticoagulants
CPT/HCPCS: 33228; 36415; 80048; 85025; 85610; 85730; 93005; 99152; 99153; C1785; J0690; J2250; J3010; J3370; J7030; A4620; A6449

== ENCOUNTER 2021-02-10 13:55 | Emergency (ER) | payer MEDICARE ==
[~2021-02-10] VITALS: Ht 167.6 cm; Wt 81.8 kg
[~2021-02-10 13:55] MED LIST changes: +AMLO10TA PO; -AMLO2.5T4 PO; +ATOR20TA66 PO; -ATOR40TA71 PO; +HYDR12.55 PO; -HYDR25TA4 PO
[2021-02-10 14:04] VITALS: BP 130/63
== END 2021-02-10 14:43 | disposition home or self-care (01) ==
LOC: ER 13:56
DX: Z48.1 Encounter for planned postprocedural wound closure (principal); R53.83 Other fatigue; R06.00 Dyspnea, unspecified; I48.91 Unspecified atrial fibrillation; I25.10 Atherosclerotic heart disease of native coronary artery without angina pectoris; I25.2 Old myocardial infarction; M10.9 Gout, unspecified; Z95.0 Presence of cardiac pacemaker; Z79.82 Long term (current) use of aspirin; Z79.899 Other long term (current) drug therapy
CPT/HCPCS: 99281

== ENCOUNTER 2021-04-17 12:12 | Emergency (ER) | payer MEDICARE ==
[~2021-04-17] VITALS: Ht 170.2 cm; Wt 82.7 kg
[2021-04-17 12:52] VITALS: BP 139/73
[2021-04-17] MEDS ORDERED: IOHEXOL 12MG/ML oral solution 500 ML BOTTLE PO ONE (15:40)
[2021-04-17] MEDS: diatr meglu/diatrizoate 30ml oral sol.-(3 dose) bottle PO SCH ×3 (15:45→15:53)
[2021-04-17 19:32] LABS: BASOPHILS % (AUTO) 0.2 % (0-1); EOSINOPHILS % (AUTO) 0.3 % (0-6); HEMATOCRIT 39.7 % (42.0-52.0); HEMOGLOBIN 13.3 g/dl (14.0-17.9); LYMPHOCYTES # (AUTO) 0.8 X10'3 (1.1-4.8); LYMPHOCYTES % (AUTO) 6.7 % (21-51); MEAN CORPUSCULAR HEMOGLOBIN 30.2 PG (27.0-31.0); MEAN CORPUSCULAR HGB CONC 33.6 g/dL (33.0-36.5); MEAN PLATELET VOLUME 7.9 FL (7.4-10.4); MONOCYTES # (AUTO) 1.5 X10'3 (0-0.9); MONOCYTES % (AUTO) 12.7 % (2-12); NEUTROPHILS # (AUTO) 9.3 X10'3 (1.8-7.7); NEUTROPHILS % (AUTO) 80.1 % (42-75); PLATELET COUNT 163 X10'3 (140-440); RED BLOOD COUNT 4.41 X10'6 (4.70-6.10); RED CELL DISTRIBUTION WIDTH 15.7 % (11.5-14.5); WHITE BLOOD COUNT 11.6 X10'3 (4.5-11.0)
[2021-04-17 19:41] LABS: D-DIMER 0.28 MG/L FEU (0-0.50)
[2021-04-17 19:48] LABS: ALANINE AMINOTRANSFERASE 23 U/L (12-78); ALBUMIN/GLOBULIN RATIO 1.1 (1.1-1.5); ALKALINE PHOSPHATASE 75 IU/L (46-116); ANION GAP 9 (8-16); ASPARTATE AMINO TRANSFERASE 35 U/L (10-37); BILIRUBIN,TOTAL 1.6 MG/DL (0.1-1.0); BLOOD UREA NITROGEN 17 MG/DL (7-18); BUN/CREATININE RATIO 13.8 (5.4-32.0); C-REACTIVE PROTEIN 5.55 MG/DL (0.0-0.5); CALCIUM 9.5 MG/DL (8.5-10.1); CHLORIDE 101 MMOL/L (99-107); CREATININE 1.23 MG/DL (0.60-1.10); GLUCOSE 157 MG/DL (70-104); POTASSIUM 3.3 MMOL/L (3.5-5.1); SODIUM 140 MMOL/L (135-145); TOTAL CARBON DIOXIDE 30.1 MMOL/L (24-32); TOTAL PROTEIN 7.7 G/DL (6.4-8.2); eGFR 56 ML/MIN
== END 2021-04-17 19:22 | disposition home or self-care (01) ==
LOC: ER 12:13
DX: R10.31 Right lower quadrant pain (principal); R59.1 Generalized enlarged lymph nodes; I48.91 Unspecified atrial fibrillation
CPT/HCPCS: 36415; 74176; 76881; 80053; 84145; 85025; 85379; 86140; 99284

== ENCOUNTER 2021-10-16 08:26 | Day surgery (SDC) | payer MEDICARE ==
[~2021-10-16 08:26] MED LIST changes: -ASPI-611 PO; +HYDR-3972 PO
[2021-10-16] MEDS ORDERED: LIDOcaine 1% 30ml preserv. free vial SQ STA (08:35)
[2021-10-16] MEDS ORDERED: ALLO300T8 PO (08:55)
[2021-10-16] MEDS ORDERED: PRED20TA PO (08:55)
[2021-10-16] MEDS ORDERED: FURO20TA4 PO (08:55)
[2021-10-16 09:00] VITALS: BP 135/74
--- NOTE | 2021-10-16 10:45 | NUR ---
Pt dc'd to home via ambulatory with all belongings. Pt and verbalized understanding of DC instructions.
== END 2021-10-16 10:45 | disposition home or self-care (01) ==
LOC: SSTAY O 08:26
PROVIDERS: ATTEND Preventive Medicine Aerospace Medicine
DX: R18.8 Other ascites (principal); I25.10 Atherosclerotic heart disease of native coronary artery without angina pectoris; I10 Essential (primary) hypertension; Z85.72 Personal history of non-Hodgkin lymphomas; Z95.0 Presence of cardiac pacemaker; Z98.890 Other specified postprocedural states; Z79.899 Other long term (current) drug therapy; Z79.01 Long term (current) use of anticoagulants; Z85.46 Personal history of malignant neoplasm of prostate
CPT/HCPCS: 36415; 49083; 88108; 88305

== ENCOUNTER 2022-02-23 08:24 | Day surgery (SDC) | payer MEDICARE ==
[~2022-02-23] VITALS: Ht 170.2 cm; Wt 82.2 kg
[2022-02-23] VITALS (9 sets, daily range): BP systolic 120–141; BP diastolic 58–80
[~2022-02-23 08:24] MED LIST changes: +ALLO300T8 PO; -AMLO10TA PO; -CHOL100046 PO; +FURO20TA4 PO; -HYDR-3972 PO; -LISI40TA13 PO; +PRED20TA PO
[2022-02-23] MEDS ORDERED: albumin 25% 100mL bottle x 1 IV PRN (08:50)
[2022-02-23] MEDS ORDERED: FURO40TA4 PO (09:04)
== END 2022-02-23 11:45 | disposition home or self-care (01) ==
LOC: SSTAY O 08:24
PROVIDERS: ATTEND Radiology Vascular & Interventional Radiology
DX: R18.8 Other ascites (principal); I10 Essential (primary) hypertension; I25.10 Atherosclerotic heart disease of native coronary artery without angina pectoris; Z79.899 Other long term (current) drug therapy; Z98.890 Other specified postprocedural states; Z95.0 Presence of cardiac pacemaker; Z80.42 Family history of malignant neoplasm of prostate
CPT/HCPCS: 36415; 49083; C1729; P9047; A6258

== ENCOUNTER 2022-06-12 08:07 | Day surgery (SDC) | payer MEDICARE ==
[~2022-06-12] VITALS: Ht 170.2 cm; Wt 85.8 kg
[~2022-06-12 08:07] MED LIST changes: -ALLO300T8 PO; -FURO20TA4 PO; +FURO40TA4 PO; -PRED20TA PO
[2022-06-12 08:21] VITALS: BP 127/65
[2022-06-12] MEDS ORDERED: LIDOcaine 1% 30ml preserv. free vial SQ STA (08:24)
[2022-06-12] MEDS ORDERED: albumin 25% 100mL bottle x 1 IV PRN (08:45)
[2022-06-12 09:48] VITALS: BP 100/64
[2022-06-12 10:03] VITALS: BP 117/64
[2022-06-12 10:18] VITALS: BP 120/61
[2022-06-12 10:33] VITALS: BP 123/73
== END 2022-06-12 10:45 | disposition home or self-care (01) ==
LOC: SSTAY O 08:07
PROVIDERS: ATTEND Radiology Diagnostic Radiology
DX: R18.8 Other ascites (principal); I10 Essential (primary) hypertension; I25.10 Atherosclerotic heart disease of native coronary artery without angina pectoris; Z95.0 Presence of cardiac pacemaker; Z98.890 Other specified postprocedural states; Z85.72 Personal history of non-Hodgkin lymphomas; Z98.52 Vasectomy status; Z80.7 Family history of other malignant neoplasms of lymphoid, hematopoietic and related tissues; Z80.0 Family history of malignant neoplasm of digestive organs; Z80.42 Family history of malignant neoplasm of prostate; Z87.09 Personal history of other diseases of the respiratory system; Z79.01 Long term (current) use of anticoagulants; Z79.899 Other long term (current) drug therapy; Z87.891 Personal history of nicotine dependence
CPT/HCPCS: 49083; J3490; P9047; A6449

== ENCOUNTER 2022-08-24 08:07 | Day surgery (SDC) | payer MEDICARE ==
[~2022-08-24] VITALS: Ht 170.2 cm; Wt 84.1 kg
[2022-08-24] VITALS (9 sets, daily range): BP systolic 103–133; BP diastolic 49–77
[2022-08-24] MEDS ORDERED: LIDOcaine 1% 30ml preserv. free vial SQ STA (08:18)
[2022-08-24] MEDS ORDERED: AMLO10TA13 PO (08:38)
[2022-08-24] MEDS ORDERED: albumin 25% 100mL bottle x 1 IV PRN (09:15)
== END 2022-08-24 10:50 | disposition home or self-care (01) ==
LOC: SSTAY O 08:07
PROVIDERS: ATTEND Radiology Vascular & Interventional Radiology
DX: R18.8 Other ascites (principal); R14.0 Abdominal distension (gaseous); C85.10 Unspecified B-cell lymphoma, unspecified site; I10 Essential (primary) hypertension; I25.10 Atherosclerotic heart disease of native coronary artery without angina pectoris; K21.9 Gastro-esophageal reflux disease without esophagitis; I48.20 Chronic atrial fibrillation, unspecified; E78.5 Hyperlipidemia, unspecified; M19.90 Unspecified osteoarthritis, unspecified site; N40.0 Benign prostatic hyperplasia without lower urinary tract symptoms; Z95.0 Presence of cardiac pacemaker; Z79.01 Long term (current) use of anticoagulants; Z87.442 Personal history of urinary calculi; Z79.899 Other long term (current) drug therapy; Z98.61 Coronary angioplasty status; Z80.42 Family history of malignant neoplasm of prostate; Z80.0 Family history of malignant neoplasm of digestive organs; Z80.7 Family history of other malignant neoplasms of lymphoid, hematopoietic and related tissues
CPT/HCPCS: 49083; J3490; P9047; A6258; A6402; A6449

== ENCOUNTER 2022-10-15 08:26 | Day surgery (SDC) | payer MEDICARE ==
[~2022-10-15] VITALS: Ht 170.2 cm; Wt 79.2 kg
[~2022-10-15 08:26] MED LIST changes: +AMLO10TA13 PO
[2022-10-15] MEDS ORDERED: albumin 25% 100mL bottle x 1 IV PRN (08:50)
[2022-10-15] MEDS ORDERED: LIDOcaine 1%/PF 5ML 10 MG/ML VIAL SQ ONE (08:50)
[2022-10-15] MEDS ORDERED: normal saline 1000ml 1,000 ML IV PRN (08:50)
[2022-10-15 08:58] VITALS: BP 130/74
[2022-10-15 09:13] VITALS: BP 118/52
[2022-10-15 09:28] VITALS: BP 122/65
[2022-10-15 09:43] VITALS: BP 120/62
[2022-10-15 10:00] VITALS: BP 129/72
[2022-10-15 10:13] VITALS: BP 128/70
== END 2022-10-15 10:15 | disposition home or self-care (01) ==
LOC: SSTAY O 08:26
PROVIDERS: ATTEND Radiology Diagnostic Radiology
DX: R18.8 Other ascites (principal); R14.0 Abdominal distension (gaseous); C83.30 Diffuse large B-cell lymphoma, unspecified site; I10 Essential (primary) hypertension; I25.10 Atherosclerotic heart disease of native coronary artery without angina pectoris; K21.9 Gastro-esophageal reflux disease without esophagitis; I48.20 Chronic atrial fibrillation, unspecified; E78.5 Hyperlipidemia, unspecified; M19.90 Unspecified osteoarthritis, unspecified site; N40.0 Benign prostatic hyperplasia without lower urinary tract symptoms; Z87.442 Personal history of urinary calculi; Z95.0 Presence of cardiac pacemaker; Z98.61 Coronary angioplasty status; Z79.01 Long term (current) use of anticoagulants; Z79.899 Other long term (current) drug therapy; Z98.890 Other specified postprocedural states; Z80.0 Family history of malignant neoplasm of digestive organs; Z80.42 Family history of malignant neoplasm of prostate; Z80.7 Family history of other malignant neoplasms of lymphoid, hematopoietic and related tissues
CPT/HCPCS: 49083; J3490; P9047; A6258; A6449

== ENCOUNTER 2023-01-07 08:02 | Day surgery (SDC) | payer MEDICARE ==
[~2023-01-07] VITALS: Ht 170.2 cm; Wt 78.2 kg
[2023-01-07 08:12] VITALS: BP 118/63; PULSE 70; RESP 15; TEMP 97.7; O2SAT 97
[2023-01-07] MEDS ORDERED: albumin 25% 100mL bottle x 1 IV PRN (08:30)
--- NOTE | 2023-01-07 09:30 | NUR ---
Procedure not performed, not enough ascitic fluid to safely drain per EMMANUELLE Dubose
== END 2023-01-07 09:40 | disposition home or self-care (01) ==
LOC: SSTAY O 08:02
PROVIDERS: ATTEND Radiology Vascular & Interventional Radiology
DX: R18.8 Other ascites (principal); Z53.8 Procedure and treatment not carried out for other reasons; I10 Essential (primary) hypertension; I25.10 Atherosclerotic heart disease of native coronary artery without angina pectoris; K21.9 Gastro-esophageal reflux disease without esophagitis; I48.20 Chronic atrial fibrillation, unspecified; E78.5 Hyperlipidemia, unspecified; M19.90 Unspecified osteoarthritis, unspecified site; N40.0 Benign prostatic hyperplasia without lower urinary tract symptoms; Z79.01 Long term (current) use of anticoagulants; Z85.72 Personal history of non-Hodgkin lymphomas; Z87.442 Personal history of urinary calculi; Z95.0 Presence of cardiac pacemaker; Z98.890 Other specified postprocedural states; Z79.899 Other long term (current) drug therapy; Z80.42 Family history of malignant neoplasm of prostate
CPT/HCPCS: 49083; 76705; A6258; A6449

== ENCOUNTER 2023-08-23 01:18 | Emergency (ER) | payer MEDICARE ==
[~2023-08-23] VITALS: Ht 170.2 cm; Wt 78.2 kg
[~2023-08-23 01:18] MED LIST changes: -APIX5TAB3 PO; +LACT1CAP74 PO; -OMEG-42 PO; -TRAZ-256 PO; +TRAZ150T78 PO
[2023-08-23 01:21] VITALS: TEMP 98.7
[2023-08-23 04:07] LABS: ALANINE AMINOTRANSFERASE 12 U/L (12-78); ALBUMIN 3.7 G/DL (3.4-5.0); ALBUMIN/GLOBULIN RATIO 1.1 (1.1-1.5); ALKALINE PHOSPHATASE 152 IU/L (46-116); ANION GAP 3 (8-16); ASPARTATE AMINO TRANSFERASE 15 U/L (10-37); BILIRUBIN,TOTAL 0.9 MG/DL (0.1-1.0); BLOOD UREA NITROGEN 19 MG/DL (7-18); BUN/CREATININE RATIO 14.1 (10.0-20.0); CALCIUM 9.3 MG/DL (8.5-10.1); CHLORIDE 104 MMOL/L (99-107); CREATININE 1.35 MG/DL (0.60-1.10); GLUCOSE 133 MG/DL (70-104); LIPASE 41 U/L (16-77); POTASSIUM 3.7 MMOL/L (3.5-5.1); SODIUM 140 MMOL/L (135-145); TOTAL CARBON DIOXIDE 33.3 MMOL/L (24-32); eCRCL 38 ML/MIN; eGFR 50 ML/MIN
[2023-08-23 04:08] LABS: BASOPHILS # (AUTO) 0.1 X10'3 (0-0.2); BASOPHILS % (AUTO) 0.8 % (0-1); EOSINOPHILS % (AUTO) 0.3 % (0-6); HEMATOCRIT 42.4 % (42.0-52.0); HEMOGLOBIN 13.8 g/dl (14.0-17.9); LYMPHOCYTES # (AUTO) 1.1 X10'3 (1.1-4.8); LYMPHOCYTES % (AUTO) 9.8 % (21-51); MEAN CORPUSCULAR HEMOGLOBIN 31.8 PG (27.0-31.0); MEAN CORPUSCULAR HGB CONC 32.6 g/dL (33.0-36.5); MEAN CORPUSCULAR VOLUME 97.7 FL (78-98); MEAN PLATELET VOLUME 8.1 FL (7.4-10.4); MONOCYTES % (AUTO) 8.9 % (2-12); NEUTROPHILS # (AUTO) 9.3 X10'3 (1.8-7.7); NEUTROPHILS % (AUTO) 80.2 % (42-75); PLATELET COUNT 204 X10'3 (140-440); RED BLOOD COUNT 4.34 X10'6 (4.70-6.10); RED CELL DISTRIBUTION WIDTH 15.8 % (11.5-14.5); WHITE BLOOD COUNT 11.6 X10'3 (4.5-11.0)
[2023-08-23] MEDS: ondansetron 4mg rapidly disintigrating tab PO ONE (05:02)
[2023-08-23 05:52] VITALS: BP 120/62; PULSE 62; RESP 18; O2SAT 98
== END 2023-08-23 05:54 | disposition home or self-care (01) ==
LOC: ER 01:19
DX: K42.9 Umbilical hernia without obstruction or gangrene (principal); I48.91 Unspecified atrial fibrillation; I25.10 Atherosclerotic heart disease of native coronary artery without angina pectoris; I25.2 Old myocardial infarction; Z85.9 Personal history of malignant neoplasm, unspecified; Z95.0 Presence of cardiac pacemaker
CPT/HCPCS: 36415; 80053; 83690; 84145; 85025; 99283; A6446; A6449